=== PATIENT | female | born 1930 | race Caucasian/White ===

== ENCOUNTER 2018-06-03 10:34 | Emergency (ER) | payer MEDICARE, BC ==
[~2018-06-03] VITALS: Ht 157.5 cm; Wt 58.0 kg
[2018-06-03 12:00] LABS: MEAN CORPUSCULAR HEMOGLOBIN 26.3 pg (27.0-34.8); MEAN CORPUSCULAR HGB CONC 32.1 g/dL (32.4-35.8); MEAN CORPUSCULAR VOLUME 81.9 fL (80-100); RED BLOOD COUNT 3.34 x10^6/uL (3.82-5.3); RED CELL DISTRIBUTION WIDTH 15.7 % (9.6-15.2)
--- NOTE | 2018-06-03 12:00 | NUR ---
UOB TO COMMODE WITH MINIMAL ASSISTANCE. URINE SAMPLE OBTAINED AND SENT TO LAB
[2018-06-03 12:07] LABS: ALBUMIN 3.1 g/dL (3.4-5.0); ANION GAP 10 mmol/L (5-15); CHLORIDE 103 mmol/L (98-107); CREATININE 0.78 mg/dL (0.55-1.02)
--- NOTE | 2018-06-03 12:41 | NUR ---
DISCUSSED WITH BHAKTI THAT CLEAN CATCH URINE OBTAINED AND HE STATED THAT IS SUFFICIENT AND THAT STRAIGHT CATH IS NOT NEEDED
[2018-06-03 12:44] LABS: MD YES; MEAN PLATELET VOLUME 9.8 fL (7.4-10.4); PLATELET COUNT 756 x10^3/uL (130-400)
[2018-06-03 12:45] LABS: MICROSCOPIC NOT IND
[2018-06-03 12:47] LABS: ANISOCYTOSIS 1+; BAND#(MANUAL) 0.18 x10^3/uL; BANDS%(MANUAL) 1 % (0-7); BASOS#(MANUAL) 0.54 x10^3/uL (0-0.1); BASOS% (MANUAL) 3 % (0-1); EOS#(MANUAL) 0.36 x10^3/uL (0.0-0.4); EOS% (MANUAL) 2 % (1-7); LYMPH#(MANUAL) 0.72 x10^3/uL (1-3.4); LYMPHS% (MANUAL) 4 % (22-44); MYELOCYTES# (MANUAL) 0.18 x10^3/uL (0-0); MYELOCYTES% (MANUAL) 1 % (0-0); POLYCHROMASIA 1+; SEG#(MANUAL) 16.11 x10^3/uL (1.8-6.8); SEGS% (MANUAL) 89 % (42-75)
[2018-06-03 12:48] LABS: <PLATELET ESTIMATE> INCREASED; HYPOCHROMIA 1+; LARGE PLATELETS 1+
[2018-06-03] MEDS ORDERED: AZITHROMYCIN 500 MG in SODIUM CHLORIDE 0.9% 250 ML IV ONE (13:30)
[2018-06-03] MEDS ORDERED: SODIUM CHLORIDE FLUSH 10ML SYR IVF ONE (13:30)
[2018-06-03] MEDS ORDERED: CEFTRIAXONE PMX 1GM/50ML 50 ML IVPB ONE (13:30)
--- NOTE | 2018-06-03 13:30 | NUR ---
AMBULATED SHORT DISTANCE TO BATHROOM WITH USE OF CANE AND ASSISTANCE OF DAUGHTER
[2018-06-03] MEDS ORDERED: CEFTRIAXONE PMX 1GM/50ML 50 ML ONE (14:14)
[2018-06-03 14:22] VITALS: BP 99/40
--- NOTE | 2018-06-03 14:22 | NUR ---
IV ANTIBIOTICS INFUSING PER ORDERS
--- NOTE | 2018-06-03 14:57 | NUR ---
SECOND ANTIBIOTIC INFUSING. FAMILY REMAINS AT BEDSIDE.
== END 2018-06-03 16:17 | disposition home or self-care (01) ==
LOC: ED 12:56
DX: S22.080A Wedge compression fracture of T11-T12 vertebra, initial encounter for closed fracture (principal); S32.2XXA Fracture of coccyx, initial encounter for closed fracture; D50.9 Iron deficiency anemia, unspecified; D72.829 Elevated white blood cell count, unspecified; W18.30XA Fall on same level, unspecified, initial encounter; Y93.89 Activity, other specified; Y92.410 Unspecified street and highway as the place of occurrence of the external cause; Y99.8 Other external cause status
CPT/HCPCS: 36415; 71045; 72072; 72220; 80048; 81003; 82040; 83605; 84145; 85025; 87040; 96365; 96366; 96368; 99284; J0456; J0696; J7050